=== PATIENT | female | born 1980 | race African-American/Black ===

== ENCOUNTER 2018-09-12 13:00 | Emergency (ER) | payer OTHER ==
--- NOTE | 2018-09-12 13:35 | PDOC ---
Rapid Medical Evaluation Chief Complaint: Pain Time Seen by Provider: 09/12/18 13:32 Medical Evaluation: Allergies Allergy/AdvReac Type Severity Reaction Status Date / Time No Known Allergies Allergy Verified 02/10/16 12:35 09/12/18 13:32 I have performed a brief in-person evaluation of this patient. The patient presents with a chief complaint of: acute onset pain to suprapubic region, denies urinary sxs, hx of IUD placed 2 months ago by in [place], hx of uterine cancer (no hx of radiation/chemo/surgery) Pertinent physical exam findings: well appearing, VSS I have ordered the following: urine, labs, pelvic US The patient will proceed to the ED for further evaluation. Discharge Disposition - Diagnosis Fibroid - Discharge Dispostion Disposition: HOME Condition at time of disposition: Improved - Prescriptions Prescriptions: Doxycycline Hyclate 100 mg PO BID 7 Days #14 capsule - Referrals Referrals: Yariel Elder MD [Primary Care Provider] - Kendell Roblero MD [Staff Physician] - - Patient Instructions Additional Instructions: Please follow up with your bonding molder as soon as you can. You have a small fibroid in your uterus. Please take your antibiotics twice daily for 7 days. Please return to the ED if you have new or worsening symptoms. If you do not have a bonding molder then please use [place]. - Post Discharge Activity
[2018-09-12 13:37] VITALS: BMI 47.3
[2018-09-12 15:00] LABS: BASO % 0.7 % (0-2.0); EOS % 3.6 % (0-4.5); HEMATOCRIT 39.1 % (32.4-45.2); HEMOGLOBIN 12.5 GM/dL (10.7-15.3); LYMPH % 45.6 % (8-40); MCH 23.5 pg (25.7-33.7); MEAN CELL VOLUME 73.3 fl (80-96); MEAN PLT VOLUME 9.6 fl (7.5-11.1); MONO % 6.8 % (3.8-10.2); NEUT % 43.3 % (42.8-82.8); PLATELET COUNT 235 K/MM3 (134-434); RBC 5.33 M/mm3 (3.60-5.2); RDW 16.2 % (11.6-15.6)
--- NOTE | 2018-09-12 15:14 | PDOC ---
History of Present Illness - General Chief Complaint: Pain Stated Complaint: ABD PAIN Time Seen by Provider: 09/12/18 13:32 - History of Present Illness Initial Comments: 38 year old female with PMH of HTN, NIDDM, and uterine cancer (s/p resection this past year on hormone therapy) presenting with pelvic pain of intermittent and sudden onset throughout the past week. She is sexually active but has an IUD in place. Denies fevers, chills, nausea, vomiting, diarrhea, chest pain, vaginal discharge, vaginal bleeding, or other symptoms. 09/12/18 15:10 Past History - Past Medical History Allergies/Adverse Reactions: Allergies Allergy/AdvReac Type Severity Reaction Status Date / Time No Known Allergies Allergy Verified 09/12/18 13:32 Home Medications: Ambulatory Orders Doxycycline Hyclate 100 mg PO BID 7 Days #14 capsule 09/12/18 Lisinopril 10 mg PO DAILY 09/12/18 Megestrol Acetate 40 mg PO BID 09/12/18 metFORMIN HCL [Metformin HCl] 850 mg PO BID 09/12/18 Anemia: No Asthma: No Cancer: No Cardiac Disorders: No CVA: No COPD: No CHF: No Dementia: No Diabetes: Yes GI Disorders: No Disorders: No HTN: Yes Hypercholesterolemia: No Liver Disease: No Seizures: No Thyroid Disease: No - Immunization History Immunization Up to Date: No - Suicide/Smoking/Psychosocial Hx Smoking History: Never smoked Have you smoked in the past 12 months: Yes Information on smoking cessation initiated: No Hx Alcohol Use: No Drug/Substance Use Hx: No Substance Use Type: None Review of Systems - Review of Systems Constitutional: No: Chills, Diaphoresis, Fever HEENTM: No: Eye Pain, Blurred Vision, Tearing Respiratory: No: Cough, Orthopnea, Shortness of Breath Cardiac (ROS): No: Chest Pain, Edema ABD/GI: No: Diarrhea, Nausea, Vomiting : No: Burning, Dysuria, Discharge, Flank Pain Musculoskeletal: No: Back Pain, Joint Pain Integumentary: No: Bruising, Erythema, Rash Neurological: No: Headache, Numbness, Paresthesia Psychiatric: No: Anxiety, Depression Hematologic/Lymphatic: No: Anemia, Blood Clots, Easy Bleeding *Physical Exam - Vital Signs Last Vital Signs Temp Pulse Resp BP Pulse Ox 98.2 F 84 16 169/88 99 09/12/18 13:33 05/22/19 13:33 09/12/18 13:33 09/12/18 13:33 09/12/18 13:33 - Physical Exam General Appearance: Yes: Nourished, Appropriately Dressed. No: Apparent Distress HEENT: positive: EOMI, VIVIAN, Normal ENT Inspection, Normal Voice Neck: positive: Trachea midline, Normal Thyroid, Supple. negative: Tender, Rigid Respiratory/Chest: positive: Lungs Clear, Normal Breath Sounds. negative: Chest Tender, Respiratory Distress, Accessory Muscle Use Cardiovascular: positive: Regular Rhythm, Tachycardia Female Pelvic Exam: positive: normal external exam, cervical os closed, normal adnexa, normal size ovaries, discharge (white, malodorous, and scant). negative : CMT, lesions, vaginal bleeding Gastrointestinal/Abdominal: positive: Normal Bowel Sounds, Flat, Soft. negative : Tender Lymphatic: negative: Adenopathy, Tenderness Musculoskeletal: positive: Normal Inspection. negative: Decreased Range of Motion Extremity: positive: Normal Capillary Refill, Normal Inspection, Normal Range of Motion. negative: Tender Integumentary: positive: Normal Color, Dry, Warm Neurologic: positive: Fully Oriented, Alert, Normal Mood/Affect, Normal Response , Motor Strength 5/5 ED Treatment Course - LABORATORY CBC & Chemistry Diagram: 09/12/18 14:51 09/12/18 14:51 - ADDITIONAL ORDERS Additional order review: 09/12/18 14:51 RBC 5.33 H MCV 73.3 L MCHC 32.0 RDW 16.2 H MPV 9.6 Neutrophils % 43.3 Lymphocytes % 45.6 H Monocytes % 6.8 Eosinophils % 3.6 D Basophils % 0.7 D Medical Decision Making - Medical Decision Making 38 year old with previous uterine cancer s/p resection and on hormone therapy. Small uterine fibroid on US and malodorous white discharge on pelvic. Symptoms improved while here after a meal. Will treat with doxy and discharge home with count team clerk follow up. 09/12/18 17:41 *DC/Admit/Observation/Transfer Diagnosis at time of Disposition: Fibroid - Discharge Dispostion Disposition: HOME Condition at time of disposition: Improved Decision to Admit order: No - Prescriptions Prescriptions: Doxycycline Hyclate 100 mg PO BID 7 Days #14 capsule - Referrals Referrals: Yariel Elder MD [Primary Care Provider] - Kendell Roblero MD [Staff Physician] - - Patient Instructions Additional Instructions: Please follow up with your roller mechanic as soon as you can. You have a small fibroid in your uterus. Please take your antibiotics twice daily for 7 days. Please return to the ED if you have new or worsening symptoms. If you do not have a roller mechanic then please use [place]. - Post Discharge Activity
[2018-09-12 15:22] LABS: URINE APPEARANCE CLEAR; URINE BILIRUBIN NEGATIVE (NEGATIVE); URINE COLOR YELLOW; URINE GLUCOSE (UA) 3+ (NEGATIVE); URINE KETONE NEGATIVE (NEGATIVE); URINE LEUK ESTERASE NEGATIVE (NEGATIVE); URINE NITRITE NEGATIVE (NEGATIVE); URINE PROTEIN NEGATIVE (NEGATIVE)
[2018-09-12 15:30] LABS: ALBUMIN 3.8 g/dl (3.4-5.0); BILIRUBIN,TOTAL 0.6 mg/dL (0.2-1); CALCIUM 9.3 mg/dL (8.5-10.1); CREATININE 0.5 mg/dL (0.55-1.3); POTASSIUM 4.5 mmol/L (3.5-5.1); TOT PROT 7.9 g/dl (6.4-8.2)
--- NOTE | 2018-09-12 17:43 | PDOC ---
Documentation entered by Jet Posada SCRIBE, acting as scribe for Nan Lau MD. Nan Lau MD: This documentation has been prepared by the Swetha perez Nirvannie, SCRIBE, under my direction and personally reviewed by me in its entirety. I confirm that the documentation accurately reflects all work, treatment, procedures, and medical decision making performed by me. Attending Attestation - Resident Resident Name: Dwain Winters - ED Attending Attestation I have performed the following: I have examined & evaluated the patient, The case was reviewed & discussed with the resident, I agree w/resident's findings & plan - HPI HPI: 09/12/18 16:45 The patient is a 38 year old female, with a significant past medical history of HTN, NIDDM, and uterine cancer (s/p resection this past year on hormone therapy) , who presents to the emergency department with, 1 week of intermittent suprapubic pain. She denies any abnormal vaginal discharge or bleeding. She denies recent fevers , chills, headache or dizziness. She denies recent nausea, vomit, diarrhea or constipation. She denies recent dysuria, frequency, urgency or hematuria. She denies recent chest pain or shortness of breath. Allergies: NKDA Primary Care Physician: Dr. Yariel Elder - Physicial Exam PE: 09/12/18 16:45 GENERAL: The patient is in no acute distress. EYES: PERRLA, EOMI, sclera anicteric, conjunctiva clear. ENT: Ears normal, nares patent, oropharynx clear without exudates. Moist mucous membranes. NECK: Normal range of motion, supple LUNGS: Breath sounds equal, clear to auscultation bilaterally. No wheezes, and no crackles. HEART:Regular rate and rhythm, normal S1 and S2 without murmur, rub or gallop. ABDOMEN: Soft, nontender, normoactive bowel sounds. EXTREMITIES: Normal range of motion, no edema. NEUROLOGICAL: Cranial nerves II through XII grossly intact. Normal speech. No focal neurological deficits. MUSCULOSKELETAL: Back non-tender to palpation SKIN: Warm, Dry, normal turgor, no rashes or lesions noted. 09/12/18 17:41 - Medical Decision Making 09/12/18 17:42 38 yo F presenting with pelvic pain Pelvic examination per Dr Winters, malodorous GC/chlamydia sent 09/12/18 17:42 Laboratory Tests 09/12/18 09/12/18 09/12/18 14:40 14:51 14:54 WBC 7.0 Hgb 12.5 Hct 39.1 Plt Count 235 Serum , Qual Negative Urine Ketones Negative Urine Blood Negative Urine Nitrite Negative Ur Leukocyte Esterase Negative US: fibroid, IUD, small uterine fibroid Will discharge to home Follow up with clinical laboratory assistant Will give Doxy
[2018-09-12 18:22] VITALS: BP 135/76; PULSE 88; TEMP 98.1
== END 2018-09-12 18:22 | disposition home or self-care (01) ==
LOC: JER 13:00
DX: D21.9 Benign neoplasm of connective and other soft tissue, unspecified (principal); I10 Essential (primary) hypertension; E11.9 Type 2 diabetes mellitus without complications; Z85.41 Personal history of malignant neoplasm of cervix uteri; Z87.891 Personal history of nicotine dependence
CPT/HCPCS: 36415; 76830-TC; 80053; 81003; 84703; 85025; 87086; 87491; 87591; 99283-25

== ENCOUNTER 2022-05-30 12:52 | Emergency (ER) | payer OTHER ==
[2022-05-30 13:22] VITALS: BP 160/72; PULSE 100; RESP 18; TEMP 98.3; BMI 33.0
== END 2022-05-30 16:33 | disposition home or self-care (01) ==
LOC: JERFT 12:52 → JER 12:52 → JERFT 16:33
DX: R05.1 Acute cough (principal)
CPT/HCPCS: 0241U-QW; 71046-TC-FY; 99284-25

== ENCOUNTER 2023-05-09 23:50 | Emergency (ER) | payer OTHER ==
[2023-05-10 00:09] VITALS: PULSE 94; RESP 18; TEMP 97.8; BMI 35.8
[2023-05-10] MEDS ORDERED: ACETAMINOPHEN 500 MG TABLET (FP) ONE (01:24)
[2023-05-10] MEDS ORDERED: DIPHTH,PERTUSS(ACELL),TET 0.5 ML DISP.SYRIN IM ONE (01:26)
[2023-05-10] MEDS: DIPHTH,PERTUSS(ACELL),TET 0.5 ML DISP.SYRIN IM ONE (01:29)
[2023-05-10] MEDS: ACETAMINOPHEN 500 MG TABLET (FP) PO ONE (01:30)
[2023-05-10 02:04] VITALS: BP 134/77
== END 2023-05-10 02:04 | disposition home or self-care (01) ==
LOC: JER 23:50
PROC: 0HQ0XZZ Repair Scalp Skin, External Approach (ICD-10-PCS; principal; 2023-05-09)
PROC: 3E0234Z Introduction of Serum, Toxoid and Vaccine into Muscle, Percutaneous Approach (ICD-10-PCS; 2023-05-10)
DX: S01.81XA Laceration without foreign body of other part of head, initial encounter (principal); W01.198A Fall on same level from slipping, tripping and stumbling with subsequent striking against other object, initial encounter; Y92.89 Other specified places as the place of occurrence of the external cause
CPT/HCPCS: 12001-25; 70450-TC; 72125-TC; 90471; 90715; 99284-25

== ENCOUNTER 2023-05-18 10:54 | Emergency (ER) | payer OTHER ==
[2023-05-18 14:26] VITALS: BP 150/75; PULSE 99; RESP 18; TEMP 98.1; BMI 36.2
== END 2023-05-18 11:45 | disposition home or self-care (01) ==
LOC: JERFT 10:54
DX: Z48.02 Encounter for removal of sutures (principal)
CPT/HCPCS: 99281-25